=== PATIENT | male | born 1990 | race Caucasian/White ===

== ENCOUNTER 2017-05-17 18:51 | Outpatient (CLI) | payer MEDICAID ==
--- NOTE | 2017-05-18 12:48 | Ultrasound Report ---
SCROTAL DUPLEX: 05/17/2017 CLINICAL INDICATION: Palpable abnormality. TECHNIQUE: Real-time sonographic vascular imaging was performed by the supervisor inspecting through the testi cles utilizing both color-flow and Doppler spectral analysis. Multiple dental detail representative static images were saved for review. FINDINGS: The right testicle measures 4.6 x 3.1 x 2.4 cm, and the left testicle measures 4.3 x 2.9 x 2.5 cm. Normal flow and echotexture is present bilaterally. Trace hydroceles are present. No vari cocele is seen. The epididymides are unremarkable. An incidental 4-mm cyst is seen in the right epi didymis. IMPRESSION: NORMAL SCROTAL DUPLEX. NO DEFINITE MASS LESION IS IDENTIFIED. INCIDENTAL 4-MM RIGHT EP IDIDYMAL CYST. JOB #: [id number] EXT JOB #:[id number]
--- NOTE | 2017-05-18 12:51 | Ultrasound Report ---
LIMITED PELVIC ULTRASOUND: 05/17/2017 CLINICAL INDICATION: Possible left inguinal hernia. TECHNIQUE: Real-time scanning was performed with medical representative static images obtained. FINDINGS: Ultrasound of the left inguinal region demonstrates no evidence of hernia. Likely postope rative changes are noted. Normal sized inguinal lymph nodes are noted. IMPRESSION: NO EVIDENCE OF RECURRENT LEFT INGUINAL HERNIA. JOB #: [id number] EXT JOB #:[id number]
== END 2017-05-17 18:52 | disposition home or self-care (01) ==
LOC: DI 18:51
PROVIDERS: ATTEND Nurse Practitioner Family
DX: K40.90 Unilateral inguinal hernia, without obstruction or gangrene, not specified as recurrent (principal); N50.89 Other specified disorders of the male genital organs
CPT/HCPCS: 76857; 76870; 93975

== ENCOUNTER 2017-06-10 20:30 | Emergency (ER) | payer MEDICAID ==
[2017-06-10 20:41] VITALS: BP 166/87
--- NOTE | 2017-06-10 20:51 | ED Physician Documentation ---
History of Present Illness - Stated complaint Stated Complaint: INSECT BITE - Chief complaint Chief Complaint: General - History obtained from History obtained from: Patient - History of Present Illness Timing: Other (He was manipulating a TarP in his garage and he felt something bite him on the inside of the left thigh just prior to arrival.) Review of Systems Constitutional: reports: Reviewed and negative Cardiac: reports: Reviewed and negative Respiratory: reports: Reviewed and negative PD PAST MEDICAL HISTORY - Past Medical History Cardiovascular: None Respiratory: None Neuro: None Endocrine/Autoimmune: None GI: Chronic constipation : None HEENT: None Psych: None Musculoskeletal: None Derm: None - Past Surgical History General: Colonoscopy - Present Medications Home Medications: Ambulatory Orders Medication Instructions Recorded Confirmed Polyethylene Glycol 3350 [Miralax] 17 gm PO DAILY 10/30/13 10/30/13 - Allergies Allergies/Adverse Reactions: Allergies Allergy/AdvReac Type Severity Reaction Status Date / Time amoxicillin [Amoxicillin] Allergy Severe Rash Verified 10/30/13 17:10 - Social History Does the pt smoke?: No Smoking Status: Never smoker Does the pt drink ETOH?: No Does the pt have substance abuse?: No PD ED PE NORMAL - Vitals Vital signs reviewed: Yes - General General: Alert and oriented X 3, No acute distress - Extremities Extremities: Other (On the inner anterior left thigh there is a tiny real, potentially an insect bite, there is no surrounding redness or swelling.) - Neuro Neuro: Alert and oriented X 3, Normal speech - Psych Psych: Normal mood, Normal affect Results - Vitals Vitals: Vital Signs - 24 hr 06/10/17 20:39 Temperature 37.1 C Heart Rate 67 Respiratory 18 Rate Blood Pressure 166/87 H O2 Saturation 99 Oxygen O2 Source Room air PD MEDICAL DECISION MAKING - ED course ED course: He was specifically concerned for spider might bite which this may well be, discussed with him that there is no specific treatment necessary are available right now but he needs to watch the wound and return if worse. Departure - Departure Disposition: 01 Home, Self Care Clinical Impression: Insect bite Qualifiers: Encounter type: initial encounter Qualified Code(s): W57.XXXA - Bitten or stung by nonvenomous insect and other nonvenomous arthropods, initial encounter Condition: Good Record reviewed to determine appropriate education?: Yes Instructions: ED Bite Insect Comments: Your blood pressure was elevated today on check into the emergency department. This does not mean that you have hypertension, it is a common phenomenon to come to the emergency department and have elevated blood pressure. I recommend that she see your primary care physician within the week to have it rechecked when you are feeling better.
== END 2017-06-10 21:01 | disposition home or self-care (01) ==
LOC: ED 20:30
DX: S70.362A Insect bite (nonvenomous), left thigh, initial encounter (principal); W57.XXXA Bitten or stung by nonvenomous insect and other nonvenomous arthropods, initial encounter; Y93.89 Activity, other specified; Y92.59 Other trade areas as the place of occurrence of the external cause; R03.0 Elevated blood-pressure reading, without diagnosis of hypertension
CPT/HCPCS: 99282